=== PATIENT | female | born 1980 | race Caucasian/White ===

== ENCOUNTER 2017-12-04 18:04 | Emergency (ER) | payer SELFPAY | END 2017-12-04 19:06 | disposition home or self-care (01) | LOC: ERS 18:04 | DX: K40.90 Unilateral inguinal hernia, without obstruction or gangrene, not specified as recurrent (principal); F41.9 Anxiety disorder, unspecified; F31.9 Bipolar disorder, unspecified; G47.00 Insomnia, unspecified; Z79.899 Other long term (current) drug therapy | CPT/HCPCS: 99283 ==

== ENCOUNTER 2018-12-02 17:25 | Emergency (ER) | payer SELFPAY ==
[2018-12-02 18:08] LABS: Hemoglobin 10.9 g/dL (12.0-16.0); Mean Corpuscular HGB CONC 30.6 g/dL (32.0-36.0); Mean Corpuscular Hemoglobin 19.7 pg (27.0-31.0); Mean Corpuscular Volume 64.5 fL (78.0-98.0); Mean Platelet Volume 7.6 fL (7.4-10.4); Platelet Count 200 thou/uL (130-400); RBC Distribution Width 16.6 % (11.5-14.5); White Blood Cell (WBC) Count 11.8 thou/uL (4.8-10.8)
[2018-12-02 18:14] LABS: ALT (SGPT) 14 U/L (8-55); AST (SGOT) 20 U/L (5-34); Albumin 4.9 g/dL (3.5-5.0); Alkaline Phosphatase 58 U/L (40-150); Anion Gap 17 mmol/L (10-20); BUN (Urea Nitrogen) 10 mg/dL (7.0-18.7); Bilirubin, Total 0.3 mg/dL (0.2-1.2); Calc. Creatinine Clearance 0 mL/min (70-130); Calcium 10.4 mg/dL (7.8-10.44); Carbon Dioxide 22 mmol/L (22-29); Chloride 104 mmol/L (98-107); Estimated GFR-MDRD 82; Glucose 103 mg/dL (70-105); Lipase 20 U/L (8-78); Potassium 3.4 mmol/L (3.5-5.1); Protein, Total 7.9 g/dL (6.0-8.3); Sodium 140 mmol/L (136-145)
[2018-12-02] MEDS ORDERED: Morphine 4 MG/ML VIAL ONE (18:17)
[2018-12-02] MEDS ORDERED: Magnesium Sulfate 2 GM/NS 0.9% 50 ML BAG ONE (18:17)
[2018-12-02 18:19] LABS: #Basophils 0.1 thou/uL (0.0-0.2); #Lymphocytes 2.1 thou/uL (1.20-3.40); #Monocytes 0.6 thou/uL (0.11-0.59); %Basophils 0.6 % (0.0-1.0); %Eosinophils 0.3 % (0.0-10.0); %Lymphocytes 18.1 % (21.0-51.0); %Monocytes 5.1 % (0.0-10.0); %Neutrophils 75.9 % (42.0-75.0); Hypochromia SLIGHT = 6-15 cells (100X) (0-5/hpf); MDiff Complete? YES; Microcytosis SLIGHT = 6-15 cells (100X) (0-5/hpf); Platelet Morphology Comment Appears Adequate; Reflex for Review?? YES
[2018-12-02 18:20] LABS: BHCG - Serum Negative (NEGATIVE); Pregs Control Background? CLEAR/WHITE (CLR/WHITE); Pregs Control Bar Appear? YES (CONTROL BAR)
[2018-12-02 18:35] LABS: Bilirubin Negative (Negative); Blood, Urine Negative (Negative); Clarity Clear (Clear); Glucose, Urine (Dipstick) Negative (Negative); Leukocyte Negative (Negative); Nitrite Negative (Negative); Protein, Urine (Dipstick) 30 mg/dL (Neg-Trace); Specific Gravity, Urine 1.015 (1.005-1.030); Urobilinogen 0.2 mg/dL (0.2-1.0)
[2018-12-02 18:36] LABS: pH, Urine Greater/Equal 9.0 (5.0-9.0)
[2018-12-02 18:38] LABS: Bacteria/HPF Rare-Few HPF (None Seen); Pregnancy Test - Urine (BHCG) Negative (Negative); Pregu Control Background? CLEAR/WHITE (CLR/WHITE); Pregu Control Bar Appear? YES (CONTROL BAR); RBC/HPF None Seen HPF (0-3); Specific Gravity 1.015 (1.002-1.036); WBC/HPF None Seen HPF (0-3)
[2018-12-02] MEDS ORDERED: Potassium Chloride 20 MEQ TAB ONE (19:06)
[2018-12-02] MEDS ORDERED: Ondansetron PF 4 MG/2 ML Vial ONE (19:30)
--- NOTE | 2018-12-02 19:39 | CT ---
CT ABDOMEN AND PELVIS WITH CONTRAST: 12/02/18 HISTORY: Abdominal pain. COMPARISON: None. FINDINGS: The lung bases are clear. No pericardial effusion. Spleen and liver are unremarkable. Pancreas is unremarkable. The appendix is visualized and is normal. Small volume free fluid in the pelvis. No dilated loops of large or small bowel. Gallbladder is mildly distended, otherwise normal. No hydronephrosis. Adrenal glands are normal. Skeleton is unremarkable. IMPRESSION: 1. Normal appendix. 2. No acute gallbladder pathology. 3. No acute inflammatory process within the abdomen or pelvis. POS: HOME
== END 2018-12-02 19:49 | disposition home or self-care (01) ==
LOC: SCSER 17:25
DX: R11.2 Nausea with vomiting, unspecified (principal); I48.91 Unspecified atrial fibrillation; F32.9 Major depressive disorder, single episode, unspecified; Z79.899 Other long term (current) drug therapy
CPT/HCPCS: 36416; 74177; 80053; 81003; 81015; 81025; 83690; 83735; 84484; 84703; 85025; 85060; 93005; 96365; 96375; J2270; J2405; J3475

== ENCOUNTER 2019-04-11 02:29 | Emergency (ER) | payer SELFPAY ==
[2019-04-11] MEDS ORDERED: Ibuprofen 600 MG TAB ONE (02:43)
--- NOTE | 2019-04-11 08:10 | RAD ---
THREE VIEWS OF THE RIGHT HAND: INDICATION: History of injury. COMPARISON: Prior exam dated 12/09/2015. IMPRESSION: There is a watch overlying the right wrist which slightly limits image detail of the distal right for earm. No acute fracture or subluxation is seen involving the right hand. POS: [facility]
== END 2019-04-11 02:57 | disposition home or self-care (01) ==
LOC: SCSER 02:29
DX: S60.221A Contusion of right hand, initial encounter (principal); I48.91 Unspecified atrial fibrillation; F32.9 Major depressive disorder, single episode, unspecified; Z79.899 Other long term (current) drug therapy; X50.9XXA Other and unspecified overexertion or strenuous movements or postures, initial encounter

== ENCOUNTER 2019-09-01 16:16 | Inpatient (IN) | payer SELFPAY ==
[2019-09-01 16:51] LABS: #Lymphocytes 0.6 thou/uL (1.20-3.40); #Monocytes 1.1 thou/uL (0.11-0.59); #Neutrophils 17.7 thou/uL (1.40-6.50); %Basophils 0.1 % (0.0-1.0); %Monocytes 5.8 % (0.0-10.0); Hemoglobin 9.2 g/dL (12.0-16.0); Mean Corpuscular Hemoglobin 18.9 pg (27.0-31.0); Mean Corpuscular Volume 65.3 fL (78.0-98.0); Mean Platelet Volume 9.5 fL (7.4-10.4); Platelet Count 381 thou/uL (130-400); RBC Distribution Width 17.4 % (11.5-14.5); Red Blood Cell (RBC) Count 4.84 mill/uL (4.20-5.40); White Blood Cell (WBC) Count 19.4 thou/uL (4.8-10.8)
[2019-09-01 17:18] LABS: ALT (SGPT) 10 U/L (8-55); AST (SGOT) 16 U/L (5-34); Albumin 4.4 g/dL (3.5-5.0); Alkaline Phosphatase 73 U/L (40-110); Anion Gap 13 mmol/L (10-20); BUN (Urea Nitrogen) 8 mg/dL (7.0-18.7); Bilirubin, Total 0.7 mg/dL (0.2-1.2); Calc. Creatinine Clearance 0 mL/min (70-130); Calcium 9.9 mg/dL (7.8-10.44); Carbon Dioxide 22 mmol/L (22-29); Chloride 102 mmol/L (98-107); Estimated GFR-MDRD 62; Globulin 3.2 g/dL (2.4-3.5); Glucose 104 mg/dL (70-105); Potassium 3.4 mmol/L (3.5-5.1); Protein, Total 7.6 g/dL (6.0-8.3); Sodium 134 mmol/L (136-145)
[2019-09-01 17:26] LABS: BHCG - Serum Negative (NEGATIVE); Pregs Control Background? CLEAR/WHITE (CLR/WHITE); Pregs Control Bar Appear? YES (CONTROL BAR)
[2019-09-01 17:26] LABS: Hypochromia MODERATE=16-30 cells (100X) (0-5/hpf); MDiff Complete? YES; Microcytosis MODERATE=15-30 cells (100X) (0-5/hpf); Ovalocytes SLIGHT = 2-5 cells (100X) (0-1/hpf); Platelet Morphology Comment Appears Adequate; Polychromasia SLIGHT = 2-3 cells (100X) (0-2/hpf); Reflex for Review?? NO; Schistocytes SLIGHT = 2-5 cells (100X) (0-1/hpf); Tear Drops SLIGHT = 2-5 cells (100X) (0-1/hpf)
[2019-09-01] MEDS ORDERED: Ketorolac Tromethamine 30 MG/ML VIAL ONE (17:38)
[2019-09-01] MEDS ORDERED: Acetaminophen 325 MG TAB ONE (17:38)
[2019-09-01 17:57] LABS: Bacteria/HPF 4+ HPF (None Seen); Bilirubin Negative (Negative); Blood, Urine 1+ (Negative); Clarity Extra Turbid (Clear); Glucose, Urine (Dipstick) Normal (Negative); Leukocyte 500 Leu/uL (Negative); Nitrite 2+ (Negative); Protein, Urine (Dipstick) 70 mg/dL (Neg-Trace); Squamous Epithelial 21-50 HPF (0-3); Urobilinogen Normal mg/dL (Less than 2); WBC/HPF Greater than 50 HPF (0-3)
[2019-09-01] MEDS ORDERED: cefTRIAXone\\ROCEPHIN 1 GM VIAL ONE (18:20)
[2019-09-01] MEDS ORDERED: Morphine 4 MG/ML VIAL ONE ×2 (18:20→19:49)
--- NOTE | 2019-09-01 19:04 | CT ---
CT ABDOMEN AND PELVIS WITHOUT CONTRAST: 09/01/19 HISTORY: Nausea, bodyaches, headache, left sided abdominal pain. FINDINGS: Absence of oral and IV contrast reduces the sensitivity of the exam particularly for the evaluation o f solid organs and bowel. The lung bases are clear. No free air or free fluid is seen in the abdomen or pelvis. No calcified gallstones are seen. No calculi is seen in the kidneys, ureters, or the urinary bladder. No hydroureteronephrosis is seen on either side. The small bowel loops are not abnormally dilated. A normal appearing appendix is seen. The uterus and ovaries are present. A small amount of free fluid is noted in the pelvis. No acute osseous abnormali ties are seen. There is mild left perinephric inflammatory change. IMPRESSION: 1. No CT evidence of urinary calculi or obstruction. 2. Probable left pyelonephritis. POS: [facility]
--- NOTE | 2019-09-01 20:02 | PDOC.FPRHP ---
- History of Present Illness Chief Complaint: abdominal pain, back pain History of Present Illness: Patient is a 39F with PMHx of a hx of afib, Depression, ADHD that presents with abdominal pain and back pain. Patient states that pain in her abdomen began yesterday morning. She reports that the pain was accompanied by nausea and back pain. Denies any vomiting or diarrhea. Reports she also felt like she had a subjective fever yesterday, but did not take her temperature. She reports that a similar episodes happened to her back in 2008 when she was hospitalized for pyeloneprhitis. She also reports that she gets approximately 1 UTI/month that she treats with cranberry juice. PCP: Dr. Michaels- ED Course: 4mg morphine x2, 1g rocephin, 650mg tylenol, 30mg ketorolac, 2L NS - Allergies/Adverse Reactions Allergies Allergy/AdvReac Type Severity Reaction Status Date / Time No Known Allergies Allergy Verified 09/01/19 21:29 - Home Medications Medication Instructions Recorded Confirmed Type Dextroamphetamine/Amphetamine 20 mg PO TID 09/01/19 09/01/19 History [Adderall 20 mg Tablet] Venlafaxine HCl [Effexor XR] 75 mg PO DAILY 09/01/19 09/01/19 History - History PMHx: hx of afib though not in afib on exam, ADHD, depression PSHx: tubal, knee sx x 2 FHx: mom-breast cancer, DM Social: non smoker, occasional etoh use, no drug use - Review of Systems General: reports: fever/chills. denies: weight/appetite/sleep changes Eyes: denies: eye pain, vision changes ENT: denies: nasal congestion, rhinorrhea Respiratory: denies: cough, shortness of breath Cardiovascular: denies: chest pain, palpitation Gastrointestinal: reports: nausea. denies: vomiting, diarrhea Genitourinary: reports: dysuria. denies: discharge Skin: denies: rashes, jaundice Musculoskeletal: reports: pain (L-sided back pain). denies: stiffness Neurological: denies: syncope, seizure Psychological: reports: depression. denies: anxiety - Vital signs BP: [126/69] HR: [109] RR: [18] Tmax: [101.7] Pox: [98]% on [RA] Wt: [71.486kg ] - Physical Exam Constitutional: NAD, awake, alert and oriented, well developed HEENT: EOMI, MMM Neck: supple, FROM Chest: no-tender to palpation, no lesions Heart: normal S1/S2, other (tachycardic) Lungs: CTAB, no respiratory distress Abdomen: soft, bowel sounds present, other (ttp LUQ and LLQ) Musculoskeletal: normal structure, normal tone Neurological: no focal deficit, normal sensation Skin: no rash/lesions, no jaundice Heme/Lymphatic: no unusual bruising or bleeding, no purpura Psychiatric: normal mood and affect, good judgment and insight FMR H&P: Results - Labs Result Diagrams: 09/01/19 16:26 09/01/19 16:26 Lab results: WBC 19.4 thou/uL (4.8-10.8) H 09/01/19 16:26 Hgb 9.2 g/dL (12.0-16.0) L 09/01/19 16:26 Hct 31.6 % (36.0-47.0) L 09/01/19 16:26 MCV 65.3 fL (78.0-98.0) L 09/01/19 16:26 Plt Count 381 thou/uL (130-400) 09/01/19 16:26 Neutrophils % 91.0 % (42.0-75.0) H 09/01/19 16:26 Sodium 134 mmol/L (136-145) L 09/01/19 16:26 Potassium 3.4 mmol/L (3.5-5.1) L 09/01/19 16:26 Chloride 102 mmol/L (98-107) 09/01/19 16:26 Carbon Dioxide 22 mmol/L (22-29) 09/01/19 16:26 BUN 8 mg/dL (7.0-18.7) 09/01/19 16:26 Creatinine 1.01 mg/dL (0.6-1.1) 09/01/19 16:26 Glucose 104 mg/dL (70-105) 09/01/19 16:26 Lactic Acid 1.5 mmol/L (0.5-2.2) 09/01/19 16:26 Calcium 9.9 mg/dL (7.8-10.44) 09/01/19 16:26 Total Bilirubin 0.7 mg/dL (0.2-1.2) 09/01/19 16:26 AST 16 U/L (5-34) 09/01/19 16:26 ALT 10 U/L (8-55) 09/01/19 16:26 Alkaline Phosphatase 73 U/L (40-110) 09/01/19 16:26 Creatine Kinase 73 U/L (29-168) 09/01/19 16:34 Serum Total Protein 7.6 g/dL (6.0-8.3) 09/01/19 16:26 Albumin 4.4 g/dL (3.5-5.0) 09/01/19 16:26 Urine Ketones 40 mg/dL (Negative) A 09/01/19 16:52 Urine Blood 1+ (Negative) A 09/01/19 16:52 Urine Nitrite 2+ (Negative) A 09/01/19 16:52 Ur Leukocyte Esterase 500 Nasra/uL (Negative) A 09/01/19 16:52 Urine RBC 11-20 HPF (0-3) A 09/01/19 16:52 Urine WBC Greater than 50 HPF (0-3) A 09/01/19 16:52 Ur Squamous Epith Cells 21-50 HPF (0-3) A 09/01/19 16:52 Urine Bacteria 4+ HPF (None Seen) A 09/01/19 16:52 - Radiology Interpretation CT scan - abdomen Status: report reviewed by me (No renal calculi, probably L pyelonephritis) FMR H&P: A/P - Problem List (1) Sepsis Current Visit: Yes Status: Acute Code(s): A41.9 - SEPSIS, UNSPECIFIED ORGANISM (2) UTI (urinary tract infection) Current Visit: Yes Status: Acute (3) Pyelonephritis Current Visit: Yes Status: Acute Code(s): N12 - TUBULO-INTERSTITIAL NEPHRITIS, NOT SPCF ACUTE OR CHRONIC (4) Depression Current Visit: Yes Status: Acute Code(s): F32.9 - MAJOR DEPRESSIVE DISORDER , SINGLE EPISODE, UNSPECIFIED (5) ADHD Current Visit: Yes Status: Acute (6) Recurrent UTI Current Visit: Yes Status: Chronic Code(s): N39.0 - URINARY TRACT INFECTION , SITE NOT SPECIFIED (7) Hypokalemia Current Visit: Yes Status: Acute Code(s): E87.6 - HYPOKALEMIA - Plan Patient is a 39F with ADHD and Depression admitted for sepsis due to L pyelonephritis #Sepsis due to L pyelonephritis -tachycardic, fever of 101.7, WBC 19.4 in ED -UA: 500 LE, >50 WBC, 4+ bacteria -urine culture pending -blood cultures pending -received 2L NS in ED -started on rocephin in the ED, continue and alter antibiotics as sensitivities result -continue maintenance IVF -morphine q4h prn for pain control -tylenol for pain/fever #Microcytic anemia -iron studies pending, will follow #Recurrent UTI -patient reports 1 UTI/month -patient encouraged to seek urology referral outpatient #Mild hypokalemia -will replenish now, recheck am BMP #Depression -continue home meds DVT ppx: lovenox Diet: Regular Dispo: inpatient for IV abx and IVF for sepsis due to pyelonephritis Code: Full FMR H&P: Upper Level - Pertinent history 39 yo female presents with two days of feeling unwell, headache, and abdominal pain. Please see dietetic intern note above for further information. - Plan Date/Time: 09/01/192001 I, Lex Mendoza MD, have evaluated this patient and agree with findings/ plan as outlined by dietetic intern resident. Pertinent changes/additions are listed here. 1. Sepsis 2/2 Pyelonephritis - Continue Rocephin - IVF - Urine culture pending 2. Mild Hypokalemia - Replenish - Recheck in AM PCP: Dr. Michaels - CODE STATUS: FULL CODE Disposition: Stable, will admit to medical floor for further evaluation and treatment. Addendum - Attending - Attending Attestation Date/Time: 09/01/19 [id number] I personally evaluated the patient and discussed the management with Dr. Herrera I agree with the History, Examination, Assessment and Plan documented above with any addition or exceptions noted below - 39F with PMHx of depression, ADHD that presents with abdominal pain and back pain. Patient states that pain in her abdomen began yesterday morning. She reports that the pain was accompanied by nausea and back pain. Denies any vomiting or diarrhea. Reports she also felt like she had a subjective fever yesterday, but did not take her temperature. She reports that a similar episodes happened to her back in 2008 when she was hospitalized for pyeloneprhitis. She also reports that she gets approximately 1 UTI/month that she treats with cranberry juice. Has not had a workup for her recurrent UTIs. PMH/PSH/Meds/SH reviewed and agree with resident's documentation. TM 101.7 TN100 P89 BP 106/58 Exam repeated by me and agree with resident's findings. Labs: WBC=19.4, H/H=9.2/31.6, Ffr=025, Diff= 91N/3L, MCV=65.6Xz=823, K=3.4, Cl= 102, CO2=22, BUN/Cr=8/1.01, Wojy=621, lactic acid=1.5 , U/A= 4+ bact, 1+ blood, @+ nitrite, (+)LE, >50 WBC, 21-20 squames; CT abd- left perinephric inflammatory changes; possible left pyelonephritis A/P: 1) Sepsis secondary to pyelonephritis - Admit to medical. Continue IV abx, Blood and urine cultures drawn. 2) Microcytic anemia - will check labs- ferritin, iron , TIBC, 3) Hypokalemia- replace potassium and recheck in AM.
[2019-09-01] MEDS ORDERED: Acetaminophen 325 MG TAB PO PRN (20:15)
[2019-09-01] MEDS ORDERED: Ondansetron PF 4 MG/2 ML Vial IVP PRN (20:15)
[2019-09-01] MEDS ORDERED: Ondansetron ODT 4 MG TAB SL PRN (20:15)
[2019-09-01] MEDS ORDERED: Potassium Chloride 20 MEQ TAB PO SCH (20:30)
[2019-09-01] MEDS: Lactated Ringer's 1,000 ML IV SCH (20:39)
[2019-09-01] MEDS: Morphine 2 MG/ML SYRINGE SLOW IVP PRN (20:40)
[2019-09-01 21:30] VITALS: BMI 21.4
[2019-09-02] MEDS: Acetaminophen 325 MG TAB PO PRN ×3 (00:11→18:53)
[2019-09-02] MEDS: Morphine 2 MG/ML SYRINGE SLOW IVP PRN ×5 (00:38→19:42)
[2019-09-02 01:01] LABS: Iron Less than 8 ug/dL (50-170); Iron Binding Capacity, Total 386 mcg/dL (265-497); Transferrin, Serum 309 mg/dL (180-382)
[2019-09-02] MEDS: Lactated Ringer's 1,000 ML IV SCH ×3 (04:46→19:42)
[2019-09-02 05:58] LABS: #Lymphocytes 0.8 thou/uL (1.20-3.40); #Neutrophils 17.1 thou/uL (1.40-6.50); %Basophils 0.1 % (0.0-1.0); %Lymphocytes 4.4 % (21.0-51.0); %Monocytes 5.3 % (0.0-10.0); %Neutrophils 90.1 % (42.0-75.0); Hemoglobin 8.5 g/dL (12.0-16.0); Mean Corpuscular HGB CONC 30.5 g/dL (32.0-36.0); Mean Corpuscular Hemoglobin 20.3 pg (27.0-31.0); Mean Corpuscular Volume 66.6 fL (78.0-98.0); Mean Platelet Volume 9.3 fL (7.4-10.4); Platelet Count 298 thou/uL (130-400); Red Blood Cell (RBC) Count 4.16 mill/uL (4.20-5.40); White Blood Cell (WBC) Count 18.9 thou/uL (4.8-10.8)
[2019-09-02] MEDS ORDERED: Ketorolac Tromethamine 30 MG/ML VIAL IVP SCH (06:09)
[2019-09-02 06:23] LABS: Anion Gap 8 mmol/L (10-20); BUN (Urea Nitrogen) 9 mg/dL (7.0-18.7); Calc. Creatinine Clearance 92 mL/min (70-130); Calcium 8.5 mg/dL (7.8-10.44); Carbon Dioxide 22 mmol/L (22-29); Chloride 108 mmol/L (98-107); Estimated GFR-MDRD 67; Glucose 116 mg/dL (70-105); Sodium 134 mmol/L (136-145)
--- NOTE | 2019-09-02 06:31 | PDOC.FM ---
- Subjective Subjective: Pt continues with L back pain but improved. She has recurrent UTI's treated with bactrim. She had symptoms 2 days prior to admission. - Objective Vital Signs & Weight: Vital Signs (12 hours) Temp Pulse Resp BP BP Pulse Ox 09/02/19 05:56 102.4 F H 102 H 111/68 09/02/19 04:00 101.5 F H 105 H 19 97/60 94 L 09/02/19 01:40 99.1 F 102 H 09/02/19 00:05 102.9 F H 112 H 19 109/69 98 09/01/19 21:35 98 09/01/19 20:17 98 09/01/19 20:10 100 F H 89 18 106/58 L 98 Weight Weight 71.486 kg Result Diagrams: 09/02/19 05:39 09/02/19 05:39 Phys Exam - Physical Examination Constitutional: NAD Respiratory: no wheezing, no rales, clear to auscultation bilateral Cardiovascular: RRR, no significant murmur Gastrointestinal: soft, positive bowel sounds Musculoskeletal: no edema, pulses present Psychiatric: normal affect, A&O x 3 Dx/Plan (1) ADHD Status: Acute (2) Depression Code(s): F32.9 - MAJOR DEPRESSIVE DISORDER, SINGLE EPISODE, UNSPECIFIED Status : Acute (3) Hypokalemia Code(s): E87.6 - HYPOKALEMIA Status: Acute (4) Pyelonephritis Code(s): N12 - TUBULO-INTERSTITIAL NEPHRITIS, NOT SPCF ACUTE OR CHRONIC Status: Acute (5) Sepsis Code(s): A41.9 - SEPSIS, UNSPECIFIED ORGANISM Status: Acute (6) UTI (urinary tract infection) Status: Acute (7) Recurrent UTI Code(s): N39.0 - URINARY TRACT INFECTION, SITE NOT SPECIFIED Status: Chronic - Plan Plan: Patient is a 39F with ADHD and Depression admitted for sepsis due to L pyelonephritis #Sepsis due to L pyelonephritis -tachycardic, fever of 101.7, WBC 19.4 in ED -UA: 500 LE, >50 WBC, 4+ bacteria -urine culture pending -blood cultures pending -received 2L NS in ED -started on rocephin in the ED, continue and alter antibiotics as sensitivities result -continue maintenance IVF -morphine q4h prn for pain control -tylenol for pain/fever #Microcytic anemia -iron studies reveal anemia of iron deficiency. She admits to heavy menstrual bleeding monthly lasting 5-7 days requiring multiple pads per hour for the first 4 days. #Recurrent UTI -patient reports 1 UTI/month -patient encouraged to seek urology referral outpatient #Mild hypokalemia - WNL #Depression -continue home meds DVT ppx: lovenox Diet: Regular Dispo: inpatient for IV abx and IVF for sepsis due to pyelonephritis Code: Full Addendum - Attending - Attending Attestation Date/Time: 09/02/19 1893 I personally evaluated the patient and discussed the management with Dr. Loya. I agree with the History, Examination, Assessment and Plan documented above with any addition or exceptions noted below.
[2019-09-02] MEDS: Enoxaparin Sodium 40 MG/0.4 ML SYRINGE SC SCH (08:06)
[2019-09-02] MEDS: Venlafaxine HCl XR 75 MG CAP PO SCH (08:06)
[2019-09-02] MEDS: Ferrous Sulfate 325 MG TAB PO SCH ×2 (08:06→16:37)
[2019-09-02] MEDS ORDERED: Morphine 2 MG/ML SYRINGE SLOW IVP SCH (12:30)
[2019-09-02] MEDS: Ondansetron ODT 4 MG TAB PO PRN (16:38)
[2019-09-02] MEDS: cefTRIAXone\\ROCEPHIN 1 GM in Sodium Chloride 0.9% 100 ML IVPB SCH (17:39)
[2019-09-03] MEDS: Acetaminophen 325 MG TAB PO PRN ×2 (00:04→03:25)
[2019-09-03] MEDS: Morphine 4 MG/ML VIAL SLOW IVP PRN ×4 (00:07→15:38)
--- NOTE | 2019-09-03 06:10 | PDOC.FM ---
- Subjective Subjective: Pt continues with pain this morning requiring morphine. She states she has L sided back pain, DUPONT, neck pain. She believes her neck pain from stiffness, lying in bed. - Objective Vital Signs & Weight: Vital Signs (12 hours) Temp Pulse Resp BP Pulse Ox 09/03/19 04:27 100.0 F H 88 19 107/65 96 09/02/19 23:59 99.1 F 90 20 112/65 96 09/02/19 20:00 100.3 F H 98 20 112/66 97 Weight Admit Weight 71.486 kg Weight 71.486 kg I&O: 09/01/19 09/02/19 09/03/19 06:59 06:59 06:59 Intake Total 720 Balance 720 Result Diagrams: 09/03/19 06:17 09/03/19 06:17 Phys Exam - Physical Examination Constitutional: NAD Respiratory: no wheezing, no rhonchi, clear to auscultation bilateral Cardiovascular: RRR, no significant murmur Gastrointestinal: soft, positive bowel sounds Tender abdomen Musculoskeletal: no edema, pulses present Dx/Plan (1) ADHD Status: Acute (2) Depression Code(s): F32.9 - MAJOR DEPRESSIVE DISORDER, SINGLE EPISODE, UNSPECIFIED Status : Acute (3) Hypokalemia Code(s): E87.6 - HYPOKALEMIA Status: Acute (4) Pyelonephritis Code(s): N12 - TUBULO-INTERSTITIAL NEPHRITIS, NOT SPCF ACUTE OR CHRONIC Status: Acute (5) Sepsis Code(s): A41.9 - SEPSIS, UNSPECIFIED ORGANISM Status: Acute (6) UTI (urinary tract infection) Status: Acute (7) Recurrent UTI Code(s): N39.0 - URINARY TRACT INFECTION, SITE NOT SPECIFIED Status: Chronic - Plan Plan: Patient is a 39F with ADHD and Depression admitted for sepsis due to L pyelonephritis #Sepsis due to L pyelonephritis -tachycardic, fever of 101.7, WBC 19.4 in ED -UA: 500 LE, >50 WBC, 4+ bacteria -urine culture E. coli escudero-sensitive; continue rocephin -blood cultures no growth to date -received 2L NS in ED -continue maintenance IVF -morphine q8h prn for pain control; consider starting tramadol for pain -tylenol for pain/fever # Microcytic anemia # AUB -iron studies reveal anemia of iron deficiency. She admits to heavy menstrual bleeding monthly lasting 5-7 days requiring multiple pads per hour for the first 4 days. - check hgb; follow up outpt for etiology of AUB, likely hormonal #Recurrent UTI -patient reports 1 UTI/month -patient encouraged to seek urology referral outpatient #Mild hypokalemia - WNL #Depression -continue home meds DVT ppx: lovenox Diet: Regular Dispo: inpatient for IV abx and IVF for sepsis due to pyelonephritis Code: Full Addendum - Attending - Attending Attestation Date/Time: 09/03/19 2741 I personally evaluated the patient and discussed the management with Dr. Loya I agree with the History, Examination, Assessment and Plan documented above with any addition or exceptions noted below. IV antibiotic until defervesced and pain control improved.
[2019-09-03 06:47] LABS: Anion Gap 9 mmol/L (10-20); BUN (Urea Nitrogen) 7 mg/dL (7.0-18.7); Calc. Creatinine Clearance 124 mL/min (70-130); Calcium 8.5 mg/dL (7.8-10.44); Carbon Dioxide 24 mmol/L (22-29); Chloride 108 mmol/L (98-107); Estimated GFR-MDRD Greater than 90; Glucose 99 mg/dL (70-105); Potassium 3.6 mmol/L (3.5-5.1); Sodium 137 mmol/L (136-145)
[2019-09-03] MEDS: Ondansetron ODT 4 MG TAB PO PRN ×2 (07:24→14:38)
[2019-09-03 08:16] LABS: Band 7 % (5-11); Hemoglobin 7.5 g/dL (12.0-16.0); Hypochromia MODERATE=16-30 cells (100X) (0-5/hpf); Lymphocytes 7 % (21-51); MDiff Complete? YES; Mean Corpuscular HGB CONC 30.2 g/dL (32.0-36.0); Mean Corpuscular Hemoglobin 20.2 pg (27.0-31.0); Mean Corpuscular Volume 66.9 fL (78.0-98.0); Mean Platelet Volume 9.4 fL (7.4-10.4); Microcytosis MODERATE=15-30 cells (100X) (0-5/hpf); Monocytes 1 % (0-10); Neutrophil 85 % (42-75); Platelet Count 253 thou/uL (130-400); Poikilocytosis SLIGHT = 6-15 cells (100X) (0-5/hpf); Polychromasia SLIGHT = 2-3 cells (100X) (0-2/hpf); RBC Distribution Width 16.9 % (11.5-14.5); Red Blood Cell (RBC) Count 3.72 mill/uL (4.20-5.40); White Blood Cell (WBC) Count 13.5 thou/uL (4.8-10.8)
[2019-09-03] MEDS: Lactated Ringer's 1,000 ML IV SCH ×2 (09:10→18:34)
[2019-09-03] MEDS: Ferrous Sulfate 325 MG TAB PO SCH ×2 (09:11→17:06)
[2019-09-03] MEDS: Venlafaxine HCl XR 75 MG CAP PO SCH (09:20)
[2019-09-03] MEDS: Enoxaparin Sodium 40 MG/0.4 ML SYRINGE SC SCH (09:29)
[2019-09-03] MEDS: traMADol HCl 50 MG TAB PO SCH ×3 (11:07→23:09)
[2019-09-03] MEDS ORDERED: Ketorolac Tromethamine 30 MG/ML VIAL IM SCH (18:00)
[2019-09-03] MEDS: cefTRIAXone\\ROCEPHIN 1 GM in Sodium Chloride 0.9% 100 ML IVPB SCH (18:10)
[2019-09-03] MEDS ORDERED: Melatonin 3 MG TAB PO PRN (20:03)
[2019-09-04] MEDS: Lactated Ringer's 1,000 ML IV SCH ×3 (03:40→22:08)
[2019-09-04] MEDS: Morphine 4 MG/ML VIAL SLOW IVP PRN (03:42)
[2019-09-04] MEDS: traMADol HCl 50 MG TAB PO SCH ×4 (05:07→22:17)
--- NOTE | 2019-09-04 05:51 | PDOC.FM ---
- Subjective Subjective: Pt is a 39 yo female who has continued pain this morning. She has neck stiffness, DUPONT. She complains of RUQ pain, she experienced this a couple months ago for a few days, worse with food. - Objective Vital Signs & Weight: Vital Signs (12 hours) Temp Pulse Resp BP Pulse Ox 09/03/19 20:46 98.6 F 87 16 124/73 98 Weight Admit Weight 71.486 kg Weight 71.486 kg I&O: 09/02/19 09/03/19 09/04/19 06:59 06:59 06:59 Intake Total 720 4575 Balance 720 4575 Result Diagrams: 09/04/19 05:16 09/04/19 05:16 Phys Exam - Physical Examination Uncomfortable appearing HEENT: PERRLA, moist MMs Neck: no nodes, no JVD Respiratory: no wheezing, clear to auscultation bilateral Cardiovascular: RRR, no significant murmur Gastrointestinal: soft, no distention, positive bowel sounds RUQ pain, Coon's sign positive Musculoskeletal: no edema, pulses present Psychiatric: normal affect, A&O x 3 Dx/Plan (1) ADHD Status: Acute (2) Depression Code(s): F32.9 - MAJOR DEPRESSIVE DISORDER, SINGLE EPISODE, UNSPECIFIED Status : Acute (3) Hypokalemia Code(s): E87.6 - HYPOKALEMIA Status: Acute (4) Pyelonephritis Code(s): N12 - TUBULO-INTERSTITIAL NEPHRITIS, NOT SPCF ACUTE OR CHRONIC Status: Acute (5) Sepsis Code(s): A41.9 - SEPSIS, UNSPECIFIED ORGANISM Status: Acute (6) UTI (urinary tract infection) Status: Acute (7) Recurrent UTI Code(s): N39.0 - URINARY TRACT INFECTION, SITE NOT SPECIFIED Status: Chronic - Plan Plan: Patient is a 39F with ADHD and Depression admitted for sepsis due to L pyelonephritis #Sepsis 2/2due to L pyelonephritis Sepsis resolved -tachycardic, fever of 101.7, WBC 19.4 in ED -UA: 500 LE, >50 WBC, 4+ bacteria -urine culture E. coli escudero-sensitive; continue rocephin -blood cultures no growth to date -received 2L NS in ED -continue maintenance IVF -morphine q8h prn for pain control; switched to tramadol for pain, toradol as needed -tylenol for pain/fever # RUQ Pain - consider u/s # Microcytic anemia # AUB -iron studies reveal anemia of iron deficiency. She admits to heavy menstrual bleeding monthly lasting 5-7 days requiring multiple pads per hour for the first 4 days. - check hgb; follow up outpt for etiology of AUB, likely hormonal #Recurrent UTI -patient reports 1 UTI/month -patient encouraged to seek urology referral outpatient #Mild hypokalemia - WNL #Depression -continue home meds DVT ppx: lovenox Diet: Regular Dispo: inpatient for IV abx and IVF for sepsis due to pyelonephritis; pt needs pain control Code: Full Addendum - Attending - Attending Attestation Date/Time: 09/04/19 [id number] I personally evaluated the patient and discussed the management with Dr. Loya I agree with the History, Examination, Assessment and Plan documented above with any addition or exceptions noted below. Photophobia and left sided DUPONT c/w migraine no meningismus signs on exam will try triptan this am. Patient ate sonic chesseburger last pm which may have prompted biliary colick continue observation for acute cholecystitis.
[2019-09-04 06:11] LABS: Anion Gap 10 mmol/L (10-20); BUN (Urea Nitrogen) 6 mg/dL (7.0-18.7); Calc. Creatinine Clearance 128 mL/min (70-130); Calcium 8.6 mg/dL (7.8-10.44); Carbon Dioxide 26 mmol/L (22-29); Chloride 105 mmol/L (98-107); Estimated GFR-MDRD Greater than 90; Glucose 99 mg/dL (70-105); Potassium 3.5 mmol/L (3.5-5.1); Sodium 137 mmol/L (136-145)
[2019-09-04 06:45] LABS: Hemoglobin 7.3 g/dL (12.0-16.0); Mean Corpuscular HGB CONC 30.3 g/dL (32.0-36.0); Mean Corpuscular Hemoglobin 20.2 pg (27.0-31.0); Mean Corpuscular Volume 66.7 fL (78.0-98.0); Mean Platelet Volume 9.4 fL (7.4-10.4); Platelet Count 252 thou/uL (130-400); RBC Distribution Width 16.6 % (11.5-14.5); Red Blood Cell (RBC) Count 3.61 mill/uL (4.20-5.40); White Blood Cell (WBC) Count 7.6 thou/uL (4.8-10.8)
[2019-09-04 06:46] LABS: Band 6 % (5-11); Hypochromia SLIGHT = 6-15 cells (100X) (0-5/hpf); Lymphocytes 12 % (21-51); MDiff Complete? YES; Microcytosis SLIGHT = 6-15 cells (100X) (0-5/hpf); Monocytes 2 % (0-10); Neutrophil 80 % (42-75)
--- NOTE | 2019-09-04 08:48 | ULT ---
US Gallbladder RUQ: 09/04/2019 7:31 AM CLINICAL HISTORY: Right upper quadrant abdominal pain. STUDY: Limited right upper quadrant ultrasound of abdomen. COMPARISON: None. FINDINGS: Liver: Size: Normal. Echogenicity: Normal. Contour: Smooth. Mass: None. Bile ducts: No intrahepatic or extrahepatic biliary dilatation. Common bile duct measures 6 mm. Gallbladder: Sludge is seen in the gallbladder which is distended. No shadowing stones are seen. Pancreas: Head, body, and tail appear normal. Right kidney: No pelvicalyceal dilatation. Right kidney measuring 10.1 cm in length. IMPRESSION: 1. Gallbladder sludge 2. The common bile duct is upper limits of normal in size.
[2019-09-04] MEDS: Enoxaparin Sodium 40 MG/0.4 ML SYRINGE SC SCH (09:24)
[2019-09-04] MEDS: Ferrous Sulfate 325 MG TAB PO SCH ×2 (09:24→18:02)
[2019-09-04] MEDS: Venlafaxine HCl XR 75 MG CAP PO SCH (09:24)
[2019-09-04] MEDS ORDERED: SUMAtriptan Succinate 6 MG/0.5 ML VIAL SC PRN (09:33)
[2019-09-04] MEDS ORDERED: Cyclobenzaprine 10 MG TAB PO SCH (09:45)
[2019-09-04 09:57] LABS: ALT (SGPT) 35 U/L (8-55); AST (SGOT) 25 U/L (5-34); Alkaline Phosphatase 111 U/L (40-110); Bilirubin, Direct 0.1 mg/dL (0.1-0.3); Bilirubin, Total 0.2 mg/dL (0.2-1.2); Lipase 14 U/L (8-78); Protein, Total 5.6 g/dL (6.0-8.3)
[2019-09-04] MEDS ORDERED: SUMAtriptan Succinate 6 MG/0.5 ML VIAL SC SCH (10:14)
[2019-09-04] MEDS: Dicyclomine 10 MG CAP PO SCH ×3 (14:39→20:57)
[2019-09-04] MEDS: cefTRIAXone\\ROCEPHIN 1 GM in Sodium Chloride 0.9% 100 ML IVPB SCH (18:02)
[2019-09-04] MEDS: Acetaminophen 325 MG TAB PO PRN (20:57)
[2019-09-04] MEDS: Cyclobenzaprine 10 MG TAB PO PRN (23:00)
[2019-09-05] MEDS: Lactated Ringer's 1,000 ML IV SCH ×2 (03:00→14:24)
[2019-09-05] MEDS: traMADol HCl 50 MG TAB PO SCH ×4 (05:12→22:45)
--- NOTE | 2019-09-05 06:24 | PDOC.FM ---
- Subjective Subjective: Pt continues with neck pain, DUPONT in the temporal/occipital region. She has DUPONT lasting 1-3 days, this is day 5. She has pain with chin to chest in the occipital, neck region but denies pain with knees to chest. She had one fever overnight. - Objective Vital Signs & Weight: Vital Signs (12 hours) Temp Pulse Resp BP Pulse Ox 09/05/19 05:04 98.8 F 09/05/19 00:00 98.5 F 09/04/19 20:00 101.1 F H 87 20 113/69 94 L Weight Admit Weight 71.486 kg Weight 71.486 kg I&O: 09/03/19 09/04/19 09/05/19 06:59 06:59 06:59 Intake Total 720 4575 2298 Balance 720 4575 2298 Result Diagrams: 09/05/19 06:54 09/05/19 06:54 Phys Exam - Physical Examination Constitutional: NAD Respiratory: no wheezing, clear to auscultation bilateral Cardiovascular: RRR, no significant murmur Gastrointestinal: soft, positive bowel sounds mild diffuse tenderness Musculoskeletal: no edema, pulses present Neurological: non-focal, normal sensation, moves all 4 limbs Negative Kernig's Psychiatric: normal affect, A&O x 3 Dx/Plan (1) ADHD Status: Acute (2) Depression Code(s): F32.9 - MAJOR DEPRESSIVE DISORDER, SINGLE EPISODE, UNSPECIFIED Status : Acute (3) Hypokalemia Code(s): E87.6 - HYPOKALEMIA Status: Acute (4) Pyelonephritis Code(s): N12 - TUBULO-INTERSTITIAL NEPHRITIS, NOT SPCF ACUTE OR CHRONIC Status: Acute (5) Sepsis Code(s): A41.9 - SEPSIS, UNSPECIFIED ORGANISM Status: Acute (6) UTI (urinary tract infection) Status: Acute (7) Recurrent UTI Code(s): N39.0 - URINARY TRACT INFECTION, SITE NOT SPECIFIED Status: Chronic - Plan Plan: Patient is a 39F with ADHD and Depression admitted for sepsis due to L pyelonephritis # L pyelonephritis UA: 500 LE, >50 WBC, 4+ bacteria. Urine culture E. coli escudero-sensitive; blood cultures no growth at this time. Continue rocephin. Pt fevered through the night - continue maintenance IVF - Tramadol for pain, toradol as needed - tylenol for pain/fever # Sepsis resolved Tachycardic, fever of 101.7, WBC 19.4 on admission. Received 2L NS in ED. # RUQ Pain - consider u/s # Microcytic anemia # AUB -iron studies reveal anemia of iron deficiency. She admits to heavy menstrual bleeding monthly lasting 5-7 days requiring multiple pads per hour for the first 4 days. - check hgb; follow up outpt for etiology of AUB, likely hormonal # Recurrent UTI -patient reports 1 UTI/month -patient encouraged to seek urology referral outpatient # Mild hypokalemia - WNL # Depression - continue home meds # DUPONT Less likely this is from meningitis. - sumitriptan continued as it helped yesterday with DUPONT - Continued flexeril for MSK pain in occipital/neck region DVT ppx: lovenox Diet: Regular Dispo: inpatient for IV abx and IVF for sepsis due to pyelonephritis; pt needs pain control Code: Full
[2019-09-05 07:16] LABS: Anion Gap 13 mmol/L (10-20); BUN (Urea Nitrogen) 4 mg/dL (7.0-18.7); Calc. Creatinine Clearance 124 mL/min (70-130); Calcium 8.8 mg/dL (7.8-10.44); Carbon Dioxide 25 mmol/L (22-29); Chloride 105 mmol/L (98-107); Estimated GFR-MDRD Greater than 90; Glucose 109 mg/dL (70-105); Potassium 3.5 mmol/L (3.5-5.1); Sodium 139 mmol/L (136-145)
[2019-09-05 07:43] LABS: #Lymphocytes 0.9 thou/uL (1.20-3.40); #Monocytes 0.7 thou/uL (0.11-0.59); #Neutrophils 3.8 thou/uL (1.40-6.50); %Basophils 0.4 % (0.0-1.0); %Eosinophils 0.7 % (0.0-10.0); %Lymphocytes 16.5 % (21.0-51.0); %Monocytes 12.2 % (0.0-10.0); %Neutrophils 70.3 % (42.0-75.0); Hemoglobin 7.5 g/dL (12.0-16.0); Mean Corpuscular HGB CONC 30.1 g/dL (32.0-36.0); Mean Corpuscular Hemoglobin 20.1 pg (27.0-31.0); Mean Corpuscular Volume 66.8 fL (78.0-98.0); Mean Platelet Volume 8.3 fL (7.4-10.4); Platelet Count 234 thou/uL (130-400); RBC Distribution Width 16.8 % (11.5-14.5); Red Blood Cell (RBC) Count 3.72 mill/uL (4.20-5.40); White Blood Cell (WBC) Count 5.4 thou/uL (4.8-10.8)
[2019-09-05 07:56] LABS: Hypochromia SLIGHT = 6-15 cells (100X) (0-5/hpf); MDiff Complete? YES; Microcytosis MODERATE=15-30 cells (100X) (0-5/hpf); Platelet Morphology Comment Appears Adequate; Polychromasia SLIGHT = 2-3 cells (100X) (0-2/hpf)
[2019-09-05] MEDS: Venlafaxine HCl XR 75 MG CAP PO SCH (08:56)
[2019-09-05] MEDS: Enoxaparin Sodium 40 MG/0.4 ML SYRINGE SC SCH (08:56)
[2019-09-05] MEDS: Ferrous Sulfate 325 MG TAB PO SCH ×2 (08:56→17:20)
[2019-09-05] MEDS: Dicyclomine 10 MG CAP PO SCH ×4 (08:56→20:54)
[2019-09-05] MEDS ORDERED: SUMAtriptan Succinate 6 MG/0.5 ML VIAL SC SCH (09:30)
--- NOTE | 2019-09-05 10:13 | CT ---
CT abdomen and pelvis without and with IV contrast HISTORY: Pyelonephritis. COMPARISON: 09/01/2019 and 12/02/2018. FINDINGS: Each renal collecting system, ureter, and urinary bladder are decompressed without stone ev ident. The stranding around the left kidney on the prior study is no longer visible. There is subtle heterog eneous contrast and enhancement involving the lateral aspect of the superior pole left kidney. Incomplete rotation of the right kidney is again demonstrated. No enhancing masses. Mild atelectasis now evident at the lung bases with minimal bilateral pleural fluid. Uterus remains prominent with fluid in the endometrial cavity. Small amount of free fluid now evident within the dependent portion of the pelvis. Small area of poorly defined fluid density within the posterior midline subcutaneous tissues just sup erficial to the lower lumbar spinous processes. IMPRESSION: Improvement in radiographic appearance of the left kidney with small amount of residual i nflammation. No focal mass or urinary tract obstruction. Mild bibasilar lung atelectasis with minimal bilateral pleural fluid. Chronic fluid within the endometrial cavity with prominent uterus. Small amount of free fluid in pelv is now evident.
[2019-09-05] MEDS ORDERED: Iopamidol-370 76% 500 ML 1 ML ONE (11:02)
[2019-09-05] MEDS ORDERED: Ketorolac Tromethamine 30 MG/ML VIAL IVP SCH (13:45)
[2019-09-05] MEDS ORDERED: Metoclopramide HCl 10 MG/2 ML VIAL IVP SCH (13:45)
[2019-09-05] MEDS ORDERED: diphenhydrAMINE 50 MG/ML VIAL IVP SCH (13:45)
--- NOTE | 2019-09-05 14:40 | NM ---
HEPATOBILIARY SCAN: Date: 09/05/19 HISTORY: Right upper quadrant pain. RADIOPHARMACEUTICAL: 4.7 mCi technetium-99m mebrofenin injected intravenously. FINDINGS: There is good tracer extraction by the liver with prompt excretion into the biliary tract and small b owel loops, and normal filling of the gallbladder. The calculated gallbladder ejection fraction measures 59%. IMPRESSION: Normal exam. POS: [facility]
--- NOTE | 2019-09-05 15:05 | PRG ---
DATE OF SERVICE: 09/05/2019 ADDENDUM: Please add this as an addendum to the note of Dr. Julio Cesar Loya. Ms. Reed is a pleasant 39-year-old lady who was admitted with pyelonephritis. This is at least her second or third infection during the last couple of years for pyelo. We are proceeding with a repeat CT abdomen and pelvis with contrast to further delineate renal and ureteral structures. She has also been having some right upper quadrant abdominal pain and positive Coon sign. I have suggested a HIDA scan for further delineation as her GB ultrasound does show sludge and mild dilatation of the common duct. Job ID: [id number]
[2019-09-05 16:40] LABS: Syphilis Antibody Nonreactive (Nonreactive); Syphilis Antibody Index 0.05 S/CO (<1.00 Non-Reactive)
[2019-09-05 16:46] LABS: HBSAB Concentration 1.66 mIU/mL; HBSAg Index 0.46 S/CO (0-0.99); HIV (1/2) Antibody/Antigen Non-Reactive (NonReactive); HIV 1/2 INDEX 0.06 S/CO (<1.00); Hep B Surf AB Non-Reactive (NonReactive); Hep B Surf Ag Non-Reactive S/CO (NonReactive)
[2019-09-05] MEDS: cefTRIAXone\\ROCEPHIN 1 GM in Sodium Chloride 0.9% 100 ML IVPB SCH (17:21)
[2019-09-06] MEDS: Lactated Ringer's 1,000 ML IV SCH ×2 (00:04→13:07)
[2019-09-06] MEDS: traMADol HCl 50 MG TAB PO SCH (04:29)
[2019-09-06 06:21] LABS: #Eosinphils 0.2 thou/uL (0.0-0.7); #Lymphocytes 1.3 thou/uL (1.20-3.40); #Monocytes 0.8 thou/uL (0.11-0.59); #Neutrophils 3.1 thou/uL (1.40-6.50); %Basophils 0.6 % (0.0-1.0); %Eosinophils 2.9 % (0.0-10.0); %Lymphocytes 24.3 % (21.0-51.0); %Monocytes 14.1 % (0.0-10.0); Hemoglobin 7.5 g/dL (12.0-16.0); Mean Corpuscular HGB CONC 30.3 g/dL (32.0-36.0); Mean Corpuscular Hemoglobin 20.2 pg (27.0-31.0); Mean Corpuscular Volume 66.6 fL (78.0-98.0); Platelet Count 268 thou/uL (130-400); RBC Distribution Width 17.1 % (11.5-14.5); Red Blood Cell (RBC) Count 3.69 mill/uL (4.20-5.40); White Blood Cell (WBC) Count 5.4 thou/uL (4.8-10.8)
--- NOTE | 2019-09-06 06:31 | PDOC.FM ---
- Subjective Subjective: Pt is doing well today. She does have recurrence of her headache. She denies abdominal/back pain, fever, N/V. - Objective Vital Signs & Weight: Vital Signs (12 hours) Temp Pulse Resp BP Pulse Ox 09/05/19 21:00 98.4 F 69 16 103/64 96 09/05/19 20:00 96 Weight Admit Weight 71.486 kg Weight 71.486 kg I&O: 09/04/19 09/05/19 09/06/19 06:59 06:59 06:59 Intake Total 4575 2298 2009 Balance 4579 2298 2009 Result Diagrams: 09/06/19 05:44 09/06/19 05:44 Phys Exam - Physical Examination Constitutional: NAD Respiratory: no wheezing, clear to auscultation bilateral Cardiovascular: RRR, no significant murmur Gastrointestinal: soft, non-tender, positive bowel sounds Musculoskeletal: no edema, pulses present Psychiatric: normal affect, A&O x 3 Dx/Plan (1) ADHD Status: Acute (2) Depression Code(s): F32.9 - MAJOR DEPRESSIVE DISORDER, SINGLE EPISODE, UNSPECIFIED Status : Acute (3) Hypokalemia Code(s): E87.6 - HYPOKALEMIA Status: Acute (4) Pyelonephritis Code(s): N12 - TUBULO-INTERSTITIAL NEPHRITIS, NOT SPCF ACUTE OR CHRONIC Status: Acute (5) Sepsis Code(s): A41.9 - SEPSIS, UNSPECIFIED ORGANISM Status: Acute (6) UTI (urinary tract infection) Status: Acute (7) Recurrent UTI Code(s): N39.0 - URINARY TRACT INFECTION, SITE NOT SPECIFIED Status: Chronic - Plan Plan: Patient is a 39F with ADHD and Depression admitted for sepsis due to L pyelonephritis # L pyelonephritis UA: 500 LE, >50 WBC, 4+ bacteria. Urine culture E. coli escudero-sensitive; blood cultures no growth at this time. Continue rocephin. Pt has not had fever in over a month. Discharge today with omnicef for total of 14 day treatment. Follow up outpt for follow up, DUPONT with PCP in next week - Dr. Michaels. - tylenol for pain/fever # Sepsis resolved Tachycardic, fever of 101.7, WBC 19.4 on admission. Received 2L NS in ED. # RUQ Pain - U/S revealed 6 mm common bile duct, sludge. HIDA WNL. - Follow up outpt with gen surg. # Microcytic anemia # AUB -iron studies reveal anemia of iron deficiency. She admits to heavy menstrual bleeding monthly lasting 5-7 days requiring multiple pads per hour for the first 4 days. - check hgb; follow up outpt for etiology of AUB, likely hormonal. Recommended seeing OBGYN. # Recurrent UTI -patient reports 1 UTI/month -patient encouraged to seek urology referral outpatient # Mild hypokalemia - WNL # Depression - continue home meds # DUPONT Less likely this is from meningitis. - sumitriptan continued as it helped yesterday with DUPONT - Continued flexeril for MSK pain in occipital/neck region DVT ppx: lovenox Diet: Regular Dispo: inpatient for IV abx and IVF for sepsis due to pyelonephritis; pt needs pain control Code: Full
[2019-09-06] MEDS: Acetaminophen 325 MG TAB PO PRN (06:45)
[2019-09-06 07:04] LABS: Anion Gap 10 mmol/L (10-20); BUN (Urea Nitrogen) 5 mg/dL (7.0-18.7); Calc. Creatinine Clearance 134 mL/min (70-130); Calcium 8.7 mg/dL (7.8-10.44); Carbon Dioxide 26 mmol/L (22-29); Chloride 106 mmol/L (98-107); Estimated GFR-MDRD Greater than 90; Glucose 103 mg/dL (70-105); Potassium 3.7 mmol/L (3.5-5.1); Sodium 138 mmol/L (136-145)
[2019-09-06] MEDS: Ferrous Sulfate 325 MG TAB PO SCH (08:03)
[2019-09-06] MEDS: Dicyclomine 10 MG CAP PO SCH ×2 (08:03→14:14)
[2019-09-06] MEDS: Venlafaxine HCl XR 75 MG CAP PO SCH (08:03)
[2019-09-06] MEDS: Enoxaparin Sodium 40 MG/0.4 ML SYRINGE SC SCH (08:04)
[2019-09-06] MEDS: Cyclobenzaprine 10 MG TAB PO PRN (08:06)
[2019-09-06 09:05] VITALS: BP 117/75; TEMP 98.3
[2019-09-06] MEDS ORDERED: Bisacodyl 10 MG SUPP PR PRN (09:46)
[2019-09-06] MEDS ORDERED: Ketorolac Tromethamine 30 MG/ML VIAL IVP SCH (10:00)
[2019-09-06] MEDS ORDERED: Metoclopramide HCl 10 MG/2 ML VIAL IVP SCH (10:00)
[2019-09-06] MEDS ORDERED: Docusate 100 MG CAP PO SCH ×2 (10:00→21:00)
[2019-09-06] MEDS ORDERED: Polyethylene Glycol 3350 17 GM Packet PO SCH (10:00)
[2019-09-06] MEDS ORDERED: diphenhydrAMINE 50 MG/ML VIAL IVP SCH (10:00)
--- NOTE | 2019-09-06 17:32 | PRG ---
DATE OF SERVICE: 09/06/2019 I agree with the assessment and plan of Dr. Julio Cesar Loya. Job ID: [id number]
== END 2019-09-06 14:40 | disposition home or self-care (01) | DRG 872 ==
LOC: ERS 16:16 → T4-B 20:13
PROVIDERS: ADMIT Family Medicine; ATTEND Family Medicine
DX: A41.9 Sepsis, unspecified organism (principal); N12 Tubulo-interstitial nephritis, not specified as acute or chronic; I48.91 Unspecified atrial fibrillation; F32.9 Major depressive disorder, single episode, unspecified; F90.9 Attention-deficit hyperactivity disorder, unspecified type; E87.6 Hypokalemia; D64.9 Anemia, unspecified; Z79.01 Long term (current) use of anticoagulants; Z98.51 Tubal ligation status; Z87.440 Personal history of urinary (tract) infections
CPT/HCPCS: 36415; 74176; 74178; 76705; 78227; 80048; 80053; 80076; 81003; 81015; 82550; 82728; 83540; 83550; 83605; 83690; 84466; 84703; 85007; 85025; 85027; 86706; 86780; 87040; 87077; 87086; 87186; 87205; 87340; 87389; 87633; 87804; 96361; 96365; 96375; 96376; A9537; J0696; J1200; J1650; J1885; J2270; J2405; J2765; J3030; J3490; Q0162; Q9967